=== PATIENT | male | born 1970 | race Caucasian/White ===

== ENCOUNTER 2020-11-12 09:03 | Day surgery (SDC) | payer BC ==
[~2020-11-12] VITALS: Ht 177.8 cm; Wt 89.7 kg
[~2020-11-12 09:03] MED LIST: AMLO5 PO; Aspir 8181 MG PO; CARV25 PO; LISI20 PO; MONT10T PO; MULTI-VITAMIN1 EAC2 PO; ROSU5 PO
== END 2020-11-12 11:44 | disposition home or self-care (01) ==
LOC: ORSCSDS 09:03
PROVIDERS: Student in an Organized Health Care Education/Training Program
PROC: 0DBN8ZX Excision of Sigmoid Colon, Via Natural or Artificial Opening Endoscopic, Diagnostic (ICD-10-PCS; principal; 2020-11-12 11:00)
DX: Z12.11 Encounter for screening for malignant neoplasm of colon (principal); D12.5 Benign neoplasm of sigmoid colon; K57.30 Diverticulosis of large intestine without perforation or abscess without bleeding; K64.8 Other hemorrhoids; K64.4 Residual hemorrhoidal skin tags; I10 Essential (primary) hypertension; E78.5 Hyperlipidemia, unspecified; J45.909 Unspecified asthma, uncomplicated; Z79.899 Other long term (current) drug therapy
CPT/HCPCS: 88304; J2704; J7120